=== PATIENT | male | born 1955 | race Two or more races ===

== ENCOUNTER 2023-03-09 08:19 | Emergency (ER) | payer OTHER ==
[~2023-03-09] VITALS: Ht 165.1 cm; Wt 69.9 kg
[2023-03-09 08:28] VITALS: BP 134/83
--- NOTE | 2023-03-09 08:35 | NUR ---
PT W/C ASSISTED TO BED 2
--- NOTE | 2023-03-09 08:39 | NUR ---
MD GALINDO AT BEDSIDE FOR EVALUATION
[2023-03-09] MEDS ORDERED: MECLIZINE 25 MG TAB PO ONE (08:50)
[2023-03-09] MEDS ORDERED: NACL 0.9% 1,000 ML IV ONE (09:00)
--- NOTE | 2023-03-09 09:03 | NUR ---
pt taken to ct via [facility]
[2023-03-09 09:11] LABS: BASOPHILS % (AUTO) 0.5 % (0.0-2.0); EOSINOPHILS # (AUTO) 0.2 K/uL (0-0.4); EOSINOPHILS % (AUTO) 2.4 % (0.0-4.0); HEMOGLOBIN 12.8 g/dL (12.0-18.0); LYMPHOCYTES # (AUTO) 1.3 K/uL (2.0-11.5); LYMPHOCYTES % (AUTO) 20.2 % (20.5-51.1); MEAN CORPUSCULAR HEMOGLOBIN 25 pg (27-31); MEAN CORPUSCULAR HGB CONC 34 g/dL (33-37); MEAN CORPUSCULAR VOLUME 74.7 fL (80-94); MONOCYTES # (AUTO) 0.3 K/uL (0.8-1.0); MONOCYTES % (AUTO) 5.3 % (1.7-9.3); NEUTROPHILS # (AUTO) 4.7 K/uL (1.8-7.7); NEUTROPHILS % (AUTO) 71.6 % (42.2-75.2); PLATELET COUNT (AUTO) 256 K/uL (140-450); RED BLOOD CELL COUNT(AUTO) 5.08 MIL/uL (4.20-6.10); RED CELL DISTRIBUTION WIDTH 15.5 % (11.6-13.7); WHITE BLOOD COUNT (AUTO) 6.6 K/uL (4.8-10.8)
[2023-03-09 09:30] LABS: ALBUMIN 3.6 g/dL (3.4-5.0); ANION GAP 10.9 (8-16); ASPARTATE AMINOTRANSFERASE 17 U/L (15-37); CARBON DIOXIDE 27.8 mmol/L (21-32); CHLORIDE 102 mmol/L (98-107); CREATININE 0.8 mg/dL (0.6-1.3); GFR ARICAN-AMERICAN 125 mL/min (>90); GLUCOSE 220 mg/dL (74-106); POTASSIUM 3.7 mmol/L (3.5-5.1); SODIUM SERUM 137 mmol/L (136-145); TOTAL BILIRUBIN 0.4 mg/dL (0.0-1.0); UREA NITROGEN, BLOOD 16 mg/dL (7-18)
[2023-03-09] MEDS ORDERED: MECL-303 PO (10:39)
[2023-03-09] MEDS ORDERED: ONDA-188 PO (10:39)
[2023-03-09 10:56] VITALS: BP 130/66
--- NOTE | 2023-03-09 10:56 | NUR ---
Patient discharged with v/s stable. Written and verbal after care instructions FOR V[facility]IGO given and explained. Patient alert, oriented and verbalized understanding of instructions. Ambulatory with steady gait. All questions addressed prior to discharge. ID band removed. Patient advised to follow up with PMD. Rx of ANTIVERT AND XOFRAN ODT given. Opportunity to ask questions provided and answered.
== END 2023-03-09 10:56 | disposition home or self-care (01) ==
LOC: MED 08:19
DX: R42 Dizziness and giddiness (principal); I10 Essential (primary) hypertension; E11.9 Type 2 diabetes mellitus without complications; E78.5 Hyperlipidemia, unspecified; Z79.899 Other long term (current) drug therapy
CPT/HCPCS: 36415; 70450; 80053; 84484; 85025; 93005; 96360; 99285; J7030; J8597